=== PATIENT | female | born 1955 | race Asian ===

== ENCOUNTER 2023-12-12 01:44 | Emergency (ER) | payer MEDICAID, OTHER ==
[~2023-12-12] VITALS: Ht 157.5 cm; Wt 52.9 kg
[2023-12-12] MEDS: cloNIDine HCL 0.1 MG TAB PO ONE (02:26)
[2023-12-12 02:30] LABS: Basophils # (auto) 0 10 ^3/uL (0-0.2); Basophils % (auto) 0.5 % (0.0-2.0); Eosinophils # (auto) 0.1 10 ^3/uL (0-0.8); Eosinophils % (auto) 1.4 % (0.0-7.0); Hematocrit 36.8 % (36.0-46.0); Hemoglobin 12.6 g/dL (12.2-16.2); Lymphocytes # (auto) 1.6 10 ^3/uL (0.4-5.4); Lymphocytes % (auto) 30.5 % (10.0-50.0); Mean Corpuscular Hgb Conc. 34.2 g/dL (32.0-36.0); Mean Corpuscular Volume 96.4 fL (80.0-100.0); Monocytes # (auto) 0.3 10 ^3/uL (0-1.3); Monocytes % (auto) 6.4 % (0.0-12.0); Neutrophils # (auto) 3.3 10 ^3/uL (1.6-8.6); Neutrophils % (auto) 61.2 % (37.0-80.0); Nucleated Red Blood Cells % 0.1 %; Red Blood Cells 3.82 10^6/uL (4.0-5.20); White Blood Cell 5.3 10^3/uL (4.4-10.8)
[2023-12-12 02:48] LABS: Albumin 4.2 g/dL (3.2-4.8); Alkaline Phosphatase 81 U/L (46-116); Anion Gap 8 (5-15); Aspartate Aminotransferase 13 U/L (13-40); Blood Urea Nitrogen 17 mg/dL (9-23); Calcium 9.6 mg/dL (8.7-10.4); Carbon Dioxide 25 mmol/L (20-30); Chloride 109 mmol/L (98-107); Glucose 103 mg/dL (74-106); INR 0.96 (0.9-1.15); Partial Thromboplastin Time 27.1 SEC (24.5-34.5); Potassium 3.5 mmol/L (3.5-5.1); Prothrombin Time 10.2 sec (9.3-11.8); Sodium 142 mmol/L (136-145)
[2023-12-12 02:49] LABS: Bilirubin, Total 0.5 mg/dL (0.2-1.0); Total Protein 7.3 g/dL (5.7-8.2)
[2023-12-12 02:58] LABS: Alanine Aminotransferase 9 U/L (7-40)
[2023-12-12] MEDS: levETIRAcetam 1000 mg/100ml 100 ML IV ONE (03:05)
[2023-12-12 03:30] VITALS: BP 123/71; PULSE 82; RESP 15; TEMP 98.1; O2SAT 96
== END 2023-12-12 03:40 | disposition short-term general hospital (02) ==
LOC: ER 01:44
DX: I62.9 Nontraumatic intracranial hemorrhage, unspecified (principal); R47.81 Slurred speech; R51.9 Headache, unspecified; E11.9 Type 2 diabetes mellitus without complications; I10 Essential (primary) hypertension
CPT/HCPCS: 36415; 70450; 71045; 80053; 84484; 85025; 85610; 85730; 93005; 96365; 96375; 99285; J1953

== ENCOUNTER 2024-04-18 12:29 | Inpatient (IN) | payer MEDICAID ==
[~2024-04-18] VITALS: Ht 157.5 cm; Wt 55.9 kg
--- NOTE | 2024-04-18 12:46 | ED.PDOC ---
HPI (NEURO) HPI Comments 69 y.o female with a PMH of intracerebral hemorrhage, DM and HTN, presents to the ED via EMS for a chief complaint of intermittent headache, nausea, and generalized weakness that presented 2 weeks ago. Patient was at PCP office today for a follow up s/p intracerebral hemorrhage diagnose on 12/2023, staff stated patient expressed symptoms are back again and [address] follow up to rule out another hemorrhage. Patient denies any nausea, vomiting, recent head injuries, trauma, chest pain, fever, chills,. dizziness. Time Seen by MD: 12:24 Reviewed Notes: Nurses Notes, Founder Chairman And Chief Creative Officer Notes, Medications, Allergies Information Source: Patient, Emergency Med Personnel Mode of Arrival: EMS Severity: Moderate Timing: Weeks (2) Duration: Intermittent Headache Quality: Aching Onset: At rest Circumstances: Spontaneous History of: DM, Hypertension, Other (intracerebral hemorrhage ) Modifying factors: Nothing Associated Signs and Symptoms: Headache Past Medical History PAST MEDICAL HISTORY: DM, HTN Past Medical History (Other): intracerebral hemorrhage Surgical History: Denies all surgeries TOOL MECHANIC History: No Pertinent TOOL MECHANIC History Family History Family History: Reviewed,noncontributory to illness, No family hx of Cancer, No family hx of DM, No family hx of Heart evy, No family hx of HTN, No family hx ofKidney evy, No family hx of Liver evy, No family hx of Lung evy, No family hx of Stroke Social History Smoker: Non-Smoker Alcohol: Denies ETOH Use Drugs: Denies Drug Use Lives In: Home Constitutional: reports: weakness; denies: chills, diaphoresis, fatigue, fever, malaise, sweats, others EENTM: denies: blurred vision, double vision, ear bleeding, ear discharge, ear drainage, ear pain, ear ringing, eye pain, eye redness, hearing loss, mouth pain, mouth swelling, nasal discharge, nose bleeding, nose congestion, nose pain, photophobia, tearing, throat pain, throat swelling, voice changes, others Respiratory: denies: cough, hemoptysis, orthopnea, SOB at rest, shortness of breath, SOB with excertion, stridor, wheezing, others Cardiovascular: denies: chest pain, dizzy spells, diaphoresis, Dyspnea on exertion, edema, irregular heart beat, left arm pain, lightheadedness, palpitations, PND, syncope, others Gastrointestinal: denies: abdomen distended, abdominal pain, blood streaked bowels, constipated, diarrhea, dysphagia, difficulty swallowing, hematemesis, melena, nausea, poor appetite, poor fluid intake, rectal bleeding, rectal pain, vomiting, others Genitourinary: denies: abnormal vagina bleeding, burning, dyspareunia, dysuria, flank pain, frequency, hematuria, incontinence, pain, , vagina discharge, urgency, others Neurological: reports: headache; denies: dizziness, fainting, left sided numbness, left sided weakness, numbness, paresthesia, pre-existing deficit, right sided numbness, right sided weakness, seizure, speech problems, tingling, tremors, weakness, others Musculoskeletal: denies: back pain, gout, joint pain, joint swelling, muscle pain, muscle stiffness, neck pain, others Integumetry: denies: bruises, change in color, change in hair/nails, dryness, laceration, lesions, lumps, rash, wounds, others Allergic/Immunocompromised: denies: Difficulty Healing, Frequent Infections, Hives, Itching, others Hematologic/Lymphatic: denies: anemia, blood clots, easy bleeding, easy bruising, swollen glands, others Endocrine: denies: excessive hunger, excessive sweating, excessive thirst, excessive urination, flushing, intolerance to cold, intolerance to heat, unexplained weight gain, unexplained weight loss, others Psychiatric: denies: anxiety, bipolar disorder, depression, hopeless, panic disorder, schizophrenia, sleepless, suicidal, others All Other Systems: Reviewed and Negative Physical Exam General Appearance: Moderate Distress HEENT: Normal ENT Inspection, Pharynx Normal, TMs Normal Neck: Full Range of Motion, Non-Tender, Normal, Normal Inspection Respiratory: Chest Non-Tender, Lungs Clear, No Accessory Muscle Use, No R espiratory Distress, Normal Breath Sounds Cardiovascular: No Edema, No JVD, No Murmur, No Gallop, Normal Peripheral Pulses, Regular Rate/Rhythm Breast Exam: Deferred Gastrointestinal: No Organomegaly, Non Tender, No Pulsatile Mass, Normal Bowel Sounds, Soft Genitalia: Deferred Pelvic: Deferred Rectal: Deferred Extremities: No calf tenderness, Normal inspection Musculoskeletal : Apperance: Normal Neurologic: Alert Cerebellar Function: NOT DONE Reflexes: NOT DONE Skin: Normal Color Peripheral Pulses: 3+ Radial (R), 3+ Radial (L) Lymphatic: No Adenopathy Was a procedure done? Was a procedure done?: No Differential Diagnosis (SZ) Seizure: Psychogenic Seizure, Closed Head Injury, CVA/TIA Headache: Cluster, Migraine, CVA, Epidural Hemorrhage, Intracerebral Hemorrhage, Subarachnoid Hemorrhage, Subdural Hemorrhage, Mass Lesion, Meningitis, Trigeminal Neuralgia X-Ray, Labs, Meds, VS Vital Signs Date Time Temp Pulse Resp B/P (MAP) Pulse Ox O2 Delivery O2 Flow Rate FiO2 04/18/24 13:06 143/60 04/18/24 13:02 64 18 142/80 (100) 100 04/18/24 13:02 64 18 100 Room Air 04/18/24 12:58 98.9 72 16 160/89 (112) 100 Lab Test 04/18/24 12:42 Range/Units White Blood Count 4.7 4.4-10.8 10^3/uL Red Blood Count 3.62 L 4.0-5.20 10^6/uL Hemoglobin 11.8 L 12.2-16.2 g/dL Hematocrit 35.3 L 36.0-46.0 % Mean Corpuscular Volume 97.6 80.0-100.0 fL Mean Corpuscular Hemoglobin 32.6 H 28.0-32.0 pg Mean Corpuscular Hemoglobin Concent 33.4 32.0-36.0 g/dL Red Cell Distribution Width 13.3 11.8-14.3 % Platelet Count 218 140-450 10^3/uL Mean Platelet Volume 7.1 6.9-10.8 fL Neutrophils (%) (Auto) 68.3 37.0-80.0 % Lymphocytes (%) (Auto) 23.0 10.0-50.0 % Monocytes (%) (Auto) 7.3 0.0-12.0 % Eosinophils (%) (Auto) 1.0 0.0-7.0 % Basophils (%) (Auto) 0.4 0.0-2.0 % Neutrophils # (Auto) 3.2 1.6-8.6 10 ^3/uL Lymphocytes # (Auto) 1.1 0.4-5.4 10 ^3/uL Monocytes # (Auto) 0.3 0-1.3 10 ^3/uL Eosinophils # (Auto) 0 0-0.8 10 ^3/uL Basophils # (Auto) 0 0-0.2 10 ^3/uL Nucleated Red Blood Cells 0.0 % Sodium Level 144 136-145 mmol/L Potassium Level 3.8 3.5-5.1 mmol/L Chloride Level 111 H 98-107 mmol/L Carbon Dioxide Level 28 20-31 mmol/L Anion Gap 5 5-15 Blood Urea Nitrogen 20 9-23 mg/dL Creatinine 0.92 0.550-1.02 mg/dL Glomerular Filtration Rate Calc 67 >90 mL/min BUN/Creatinine Ratio 21.7 H 10.0-20.0 Serum Glucose 101 74-106 mg/dL Calcium Level 9.6 8.7-10.4 mg/dL Troponin I High Sensitivity 4 </=34 ng/L Patient alert. Complaining of headache generalized weakness. Vitals stable. Answering all questions. Blood pressure elevated. Was given clonidine. Reviewed her history. Was at [facility] for intracranial hemorrhage. Explained to the patient. Continue cardiac monitoring. CT of the head reviewed does not show any acute changes. Time of 1ST Reevaluation: 12:39 Reevaluation 1ST: Unchanged Patient Education/Counseling: Diagnosis, Treatment, Prognosis, Other (translation provided ) Family Education/Counseling: No Family Present Additional Information The following tests were ordered, and results were reviewed by me: LAB, PHA, CT head Reviewed Results- LAB, PHA, CT Additional information was gathered from interviewing the following independent historians Translation via SIMONA Vines, Paramedics I reviewed and agreed with the following test results read by other providers: CT head I discussed treatments and results with medical personnel and patient Departure 1 Departure Time of Disposition: 12:52 Impression: Primary Impression: Generalized weakness Disposition: ADMITTED INPATIENT Admit to: Med Surg Condition: Guarded Critical Care Note Critical Care Time?: No Stability Stability form required: No I personally scribed for MIKAEL JACKSON MD ([email or web address]) on 04/18/24 at 12:46. Electronically submitted by Julita Helms ([facility]). MIKAEL JACKSON MD Apr 18, 2024 12:46
[2024-04-18] MEDS: cloNIDine HCL 0.1 MG TAB PO ONE (13:02)
[2024-04-18 13:10] LABS: Basophils # (auto) 0 10 ^3/uL (0-0.2); Basophils % (auto) 0.4 % (0.0-2.0); Eosinophils # (auto) 0 10 ^3/uL (0-0.8); Hematocrit 35.3 % (36.0-46.0); Hemoglobin 11.8 g/dL (12.2-16.2); Lymphocytes # (auto) 1.1 10 ^3/uL (0.4-5.4); Mean Corpuscular Hemoglobin 32.6 pg (28.0-32.0); Mean Corpuscular Hgb Conc. 33.4 g/dL (32.0-36.0); Mean Corpuscular Volume 97.6 fL (80.0-100.0); Monocytes # (auto) 0.3 10 ^3/uL (0-1.3); Monocytes % (auto) 7.3 % (0.0-12.0); Neutrophils # (auto) 3.2 10 ^3/uL (1.6-8.6); Neutrophils % (auto) 68.3 % (37.0-80.0); Platelet Count (auto) 218 10^3/uL (140-450); Red Blood Cells 3.62 10^6/uL (4.0-5.20); Red Cell Distribution Width 13.3 % (11.8-14.3); White Blood Cell 4.7 10^3/uL (4.4-10.8)
--- NOTE | 2024-04-18 13:11 | DVH ---
CLINICAL HISTORY: headache TECHNIQUE: Helical imaging carried out from skull base to vertex without intravenous contrast. This e xam was performed according to our departmental dose optimization program. Up-to-date CT equipment an d radiation dose reduction techniques are utilized as appropriate. CTDIVol: [CTDIvol] mGy DLP: 987.52 mGy-cm WID: COMPARISON: CT HEAD WITHOUT CONTRAST on DOS: 12/12/23 FINDINGS: Mild patchy low attenuation in the cerebral white matter is consistent with nonspecific white matter disease. There is a chronic left basal ganglia infarct. The ventricles and subarachnoid spaces are normal in size and configuration. There is no midline geovanny ft or mass effect. The gibbs white matter interfaces are maintained. The basal cisterns are patent. Th ere is no evidence of acute intracranial hemorrhage or extra-axial fluid collection. The mastoid air cells and visualized paranasal sinuses are well-aerated. IMPRESSION: 1. No acute intracranial abnormality. 2. Mild chronic microvascular ischemic change. 3. Small chronic left basal ganglia infarct
[2024-04-18 13:18] LABS: Potassium 3.8 mmol/L (3.5-5.1); Sodium 144 mmol/L (136-145)
[2024-04-18 13:19] LABS: Anion Gap 5 (5-15); Carbon Dioxide 28 mmol/L (20-31)
[2024-04-18 13:20] LABS: Calcium 9.6 mg/dL (8.7-10.4)
[2024-04-18 13:24] LABS: Chloride 111 mmol/L (98-107); Glucose 101 mg/dL (74-106)
[2024-04-18 13:25] LABS: BUN/Creatinine Ratio 21.7 (10.0-20.0); Blood Urea Nitrogen 20 mg/dL (9-23)
[2024-04-18] MEDS ORDERED: hydrALAZINE HCL 20 MG/ML VL IV PRN (17:15)
[2024-04-18] MEDS ORDERED: DOCUSATE SOD 100 MG CAP PO PRN (17:45)
[2024-04-18] MEDS ORDERED: LORazepam 0.5 MG TAB PO PRN (17:45)
[2024-04-18] MEDS ORDERED: TEMAZEPAM 15 MG CAP PO PRN (17:45)
[2024-04-18] MEDS ORDERED: MORPHINE SULFATE INJ 2 MG/ml SYRG IV PRN (17:45)
[2024-04-18] MEDS ORDERED: ACETAMINOPHEN 325 MG TAB PO PRN (17:45)
[2024-04-18] MEDS ORDERED: HYDROcodone-ACET 5/325MG TAB PO PRN (17:45)
--- NOTE | 2024-04-18 17:57 | DVHHP2 ---
History of Present Illness Reason for Visit: General weakness History of Present Illness 69-year-old patient former history of diabetes and hypertension former history of stroke including hemorrhagic stroke comes to the ED with complaints of headache nausea vomiting dizziness for 2 weeks patient was evaluated in the ED this evaluation comes following the patient having a history of a hemorrhagic stroke earlier in the year stated to be around sometime in December patient as of now denies any acute signs of trauma any acute falls however patient came from a facility where there acute concern with the possibility of another hemorrhagic stroke versus stroke in general patient was recommended from the ED to be admitted for further evaluation management and neuro evaluation Cardiovascular: HTN Endocrine: Diabetes Review of Systems Constitutional: Yes: Weakness; No: Fever, Chills, Sweats, Malaise, Other Eyes: No: Pain, Vision change, Conjunctivae inflammation, Eyelid inflammation, Other, Redness ENT: No: Ear pain, Ear discharge, Nose pain, Nose discharge, Nose congestion, M outh pain, Mouth swelling, Throat pain, Throat swelling, Other Respiratory: No: Cough, Dry, Shortness of breath, SOB with excertion, Wheezing, Hemoptysis, Pleuritic Pain, Sputum, Wheezing, Other Cardiovascular: No: Chest Pain, Palpitations, Orthopnea, Paroxysmal Noc. Dyspnea, Edema, Lt Headedness, Other Gastrointestinal: No: Nausea, Vomiting, Abdominal Pain, Diarrhea, Constipation, Melena, Hematochezia, Other Genitourinary: No Dysuria, No Frequency, No Incontinence, No Hematuria, No Retention, No Other Musculoskeletal: No: other, neck pain, shoulder pain, arm pain, back pain, hand pain, leg pain, foot pain Skin: No: Rash, Lesions, Jaundice, Bruising, Other Neurological: Weakness, Numbness, Change in speech; No: Incoordination, Confusion, Seizures, Other Allergies: Coded Allergies: NO KNOWN ALLERGIES (Unverified , 12/12/23) Exam Vital Signs Vital Signs Date Time Temp Pulse Resp B/P (MAP) Pulse Ox O2 Delivery O2 Flow Rate FiO2 04/18/24 13:06 143/60 04/18/24 13:02 64 18 100 04/18/24 13:02 Room Air 04/18/24 12:58 98.9 General Appearance: Alert, Oriented X3, Cooperative, mild distress HEENT: Atraumatic, PERRLA Respiratory: Clear to auscultation, Normal air movement Cardiovascular: Regular rate, Normal S1 Abdominal: Normal bowel sounds, Soft Extremities: No clubbing, No cyanosis Skin: No rashes, No breakdown Neuro: Normal gait, Normal speech Psych/Mental Status: Mood NL Labs/Xrays Labs Test 04/18/24 12:42 Range/Units White Blood Count 4.7 4.4-10.8 10^3/uL Red Blood Count 3.62 L 4.0-5.20 10^6/uL Hemoglobin 11.8 L 12.2-16.2 g/dL Hematocrit 35.3 L 36.0-46.0 % Mean Corpuscular Volume 97.6 80.0-100.0 fL Mean Corpuscular Hemoglobin 32.6 H 28.0-32.0 pg Mean Corpuscular Hemoglobin Concent 33.4 32.0-36.0 g/dL Red Cell Distribution Width 13.3 11.8-14.3 % Platelet Count 218 140-450 10^3/uL Mean Platelet Volume 7.1 6.9-10.8 fL Neutrophils (%) (Auto) 68.3 37.0-80.0 % Lymphocytes (%) (Auto) 23.0 10.0-50.0 % Monocytes (%) (Auto) 7.3 0.0-12.0 % Eosinophils (%) (Auto) 1.0 0.0-7.0 % Basophils (%) (Auto) 0.4 0.0-2.0 % Neutrophils # (Auto) 3.2 1.6-8.6 10 ^3/uL Lymphocytes # (Auto) 1.1 0.4-5.4 10 ^3/uL Monocytes # (Auto) 0.3 0-1.3 10 ^3/uL Eosinophils # (Auto) 0 0-0.8 10 ^3/uL Basophils # (Auto) 0 0-0.2 10 ^3/uL Nucleated Red Blood Cells 0.0 % Sodium Level 144 136-145 mmol/L Potassium Level 3.8 3.5-5.1 mmol/L Chloride Level 111 H 98-107 mmol/L Carbon Dioxide Level 28 20-31 mmol/L Anion Gap 5 5-15 Blood Urea Nitrogen 20 9-23 mg/dL Creatinine 0.92 0.550-1.02 mg/dL Glomerular Filtration Rate Calc 67 >90 mL/min BUN/Creatinine Ratio 21.7 H 10.0-20.0 Serum Glucose 101 74-106 mg/dL Calcium Level 9.6 8.7-10.4 mg/dL Troponin I High Sensitivity 4 </=34 ng/L Assessment/Plan Assessment/Plan Admit to [facility] Generalized weakness Change in mentation Sent from a nursing facility for evaluation and rule out of acute stroke CT head shows chronic changes including chronic infarcts No acute changes noted Facility was requesting a neuro evaluation Rule out any form of secondary infection including urinary tract infection No acute urine has been collected at this time UA ordered Current labs do not show signs of an acute infection We will proceed with IV hydration Neuro consultation Plan discussed with: Patient My Orders Orders - ALAN CAMPUZANO MD Procedure Category Date Status Time Hydralazine Injection PHA 04/18/24 In Process (Apresoline Inject 17:15 Admit ADMIT 04/18/24 Transmitted 17:43 Code Status CODE 04/18/24 Transmitted 17:43 Vital Signs [facility] 04/18/24 In Process 17:43 Review Orders With [facility] 04/18/24 In Process Adm.Md 17:43 Notify Md Of Changes [facility] 04/18/24 In Process From Base 17:43 Advance Directive [facility] 04/18/24 In Process 17:43 Patient Condition ORDERS 04/18/24 Transmitted 17:43 Allergies [facility] 04/18/24 In Process 17:43 Notify Md Of Changes [facility] 04/18/24 In Process From Base 17:43 Oxygen By Nasal RT 04/18/24 Transmitted Cannula 17:43 Problem List: (1) Generalized weakness (2) Headache Date of Service: Apr 18, 2024 Billing Provider: ALAN CAMPUZANO MD Common Visit Codes: [id number] INP/OBS CARE (HIGH) ALAN CAMPUZANO MD Apr 18, 2024 17:57
[2024-04-18 20:11] LABS: Urine Bacteria None Seen /hpf (None Seen)
[2024-04-18 20:35] VITALS: BP 145/73; PULSE 66; RESP 18; TEMP 97.9; O2SAT 98
[2024-04-18 20:40] LABS: Urine Blood TRACE /uL (Negative); Urine Clarity Clear (Clear); Urine Color Light-Yellow (Yellow); Urine Mucus FEW (None Seen); Urine Protein, UAD TRACE (Negative); Urine Specific Gravity 1.019 (1.001-1.035); Urine Urobilinogen Normal (Negative); Urine WBC 5 /hpf (0 - 5); Urine pH 5.5 (5.0-9.0)
[2024-04-18] MEDS: SODIUM CHLORIDE 0.9% 1,000 ML IV SCH (21:14)
[2024-04-19 01:00] VITALS: BP 135/82; PULSE 84; RESP 18; TEMP 98.2; O2SAT 97
[2024-04-19 05:00] VITALS: BP 148/77; PULSE 73; RESP 16; TEMP 98.1; O2SAT 98
[2024-04-19 07:13] LABS: Anion Gap 9 (5-15); Calcium 9.5 mg/dL (8.7-10.4); Carbon Dioxide 26 mmol/L (20-31); Sodium 145 mmol/L (136-145)
[2024-04-19 07:15] LABS: Chloride 110 mmol/L (98-107); Potassium 3.2 mmol/L (3.5-5.1)
[2024-04-19 07:18] LABS: Basophils # (auto) 0 10 ^3/uL (0-0.2); Basophils % (auto) 0.6 % (0.0-2.0); Eosinophils # (auto) 0.1 10 ^3/uL (0-0.8); Eosinophils % (auto) 1.5 % (0.0-7.0); Hematocrit 33.8 % (36.0-46.0); Hemoglobin 11.5 g/dL (12.2-16.2); Lymphocytes # (auto) 1.1 10 ^3/uL (0.4-5.4); Lymphocytes % (auto) 30.7 % (10.0-50.0); Mean Corpuscular Hemoglobin 32.8 pg (28.0-32.0); Mean Corpuscular Hgb Conc. 33.9 g/dL (32.0-36.0); Mean Corpuscular Volume 96.8 fL (80.0-100.0); Monocytes # (auto) 0.3 10 ^3/uL (0-1.3); Monocytes % (auto) 7.8 % (0.0-12.0); Neutrophils # (auto) 2.1 10 ^3/uL (1.6-8.6); Neutrophils % (auto) 59.4 % (37.0-80.0); Nucleated Red Blood Cells % 0.2 %; Platelet Count (auto) 195 10^3/uL (140-450); Red Blood Cells 3.49 10^6/uL (4.0-5.20); Red Cell Distribution Width 13.4 % (11.8-14.3); White Blood Cell 3.6 10^3/uL (4.4-10.8)
[2024-04-19 07:19] LABS: BUN/Creatinine Ratio 20.9 (10.0-20.0); Blood Urea Nitrogen 14 mg/dL (9-23); Glucose 83 mg/dL (74-106)
[2024-04-19 09:00] VITALS: BP 142/75; PULSE 89; RESP 18; TEMP 98.2; O2SAT 97
--- NOTE | 2024-04-19 12:18 | DVHPN2 ---
Reviewed: Care Plan, H&P, Labs, Medications, Previous Orders, Radiology Changes from previous H/P or p: No Changes Eyes: No Pain, No Vision change, No Conjunctivae inflammation, No Eyelid inflammation, No Other, No Redness ENT: No Ear pain, No Ear discharge, No Nose pain, No Nose discharge, No Nose congestion, No Mouth pain, No Mouth swelling, No Throat pain, No Throat swelling, No Other Cardiovascular: No Chest Pain, No Palpitations, No Orthopnea, No Paroxysmal Noc. Dyspnea, No Edema, No Lt Headedness, No Other Respiratory: No Cough, No Dry, No Shortness of breath, No SOB with excertion, No Wheezing, No Hemoptysis, No Pleuritic Pain, No Sputum, No Other Gastrointestinal: No Nausea, No Vomiting, No Abdominal Pain, No Diarrhea, No Constipation, No Melena, No Hematochezia, No Other Genitourinary: No Dysuria, No Frequency, No Incontinence, No Hematuria, No Retention, No Other Musculoskeletal: No other, No neck pain, No shoulder pain, No arm pain, No back pain, No hand pain, No leg pain, No foot pain Skin: No Rash, No Lesions, No Jaundice, No Bruising, No Other Objective Vitals Vital Signs Date Time Temp Pulse Resp B/P (MAP) Pulse Ox O2 Delivery O2 Flow Rate FiO2 04/19/24 09:00 98.2 89 18 142/75 (97) 97 98.2 04/19/24 00:08 Room Air* 0 21 Intake/Output Intake and Output 04/19/24 07:00 Intake Total 240 ml Balance 240 ml Intake Oral 240 ml # Voids 1 Medications Current Medications Medications Dose Ordered Sig/Deloris Route Start Time Stop Time Status Last Admin Dose Admin Hydralazine HCl 10 mg Q6HPRN PRN IV 04/18/24 17:15 Sodium Chloride 1,000 ml @ 60 mls/hr [id number] IV 04/18/24 17:45 04/18/24 21:14 60 MLS/HR Lorazepam 0.5 mg Q6HP PRN PO 04/18/24 17:45 Al Hydrox/Mg Hydrox/Simethicone 30 ml Q6HP PRN PO 04/18/24 17:45 Docusate Sodium 100 mg BIDPRN PRN PO 04/18/24 17:45 Acetaminophen 650 mg Q6HP PRN PO 04/18/24 17:45 Temazepam 15 mg QHSP PRN PO 04/18/24 17:45 Acetaminophen/ Hydrocodone Bitart 1 tab Q4HP PRN PO 04/18/24 17:45 Ondansetron HCl 4 mg Q4HP PRN IV 04/18/24 17:45 Morphine Sulfate 2 mg Q4HPRN PRN IV 04/18/24 17:45 Ceftriaxone Sodium 50 ml @ 100 mls/hr DAILY@ IV 04/20/24 09:00 UNV Laboratory Results Laboratory Tests 04/19/24 06:09 Chemistry Test 04/18/24 12:42 04/19/24 06:09 Calcium Level 9.6 mg/dL (8.7-10.4) 9.5 mg/dL (8.7-10.4) Urinalysis Test 04/18/24 20:01 Urine Color Light-yellow (Yellow) Urine Clarity Clear (Clear) Urine pH 5.5 (5.0-9.0) Urine Specific [place] 1.019 (1.001-1.035) Urine Protein Trace (Negative) H Urine Ketones 1+ (Negative) H Urine Blood Trace /uL (Negative) H Urine Nitrite Negative (Negative) Urine Bilirubin Negative (Negative) Urine Urobilinogen Normal mg/dL (Negative) Urine Leukocyte Esterase Trace /uL (Negative) Urine RBC 1 /hpf (0 - 4) Urine WBC 5 /hpf (0 - 5) Urine Squamous Epithelial Cells Few /hpf (<5) Urine Bacteria None seen /hpf (None Seen) Urine Mucus Few (None Seen) Urine Glucose Normal mg/dL (Normal) Labs and/or images reviewed: Labs reviewed by me, Image(s) reviewed by me Assessment/Plan Assessment/Plan Nausea vomiting: GI consult for Dr. Deanna Swartz, CT abdomen pelvis without contrast negative Possible gastroenteritis: Rocephin: Zofran pantoprazole Acute urinary tract infection urine cultures Rocephin Hypertension Diabetes History of hemorrhagic stroke in the past Plan discussed with: Patient My Orders Orders - ROBBY VIGIL MD Procedure Category Date Status Time Ceftriaxone 1gm/50ml PHA 04/20/24 Logged D5w (Rocephin) 09:00 Ceftriaxone Ivpb PHA 04/19/24 Transmitted Rocephin 12:15 Urine Bacterial ENOCH 04/19/24 Logged Culture 12:14 * Gi D[facility] Product Safety Administrator CONS 04/19/24 Transmitted 12:15 Date of Service: Apr 19, 2024 Billing Provider: ROBBY VIGIL MD Common Visit Codes: [id number] INP/OBS CARE(HIGH) ROBBY VIGIL MD Apr 19, 2024 12:18
[2024-04-19 13:00] VITALS: BP 147/80; PULSE 72; RESP 18; TEMP 98.4; O2SAT 98
[2024-04-19 14:23] LABS: Alanine Aminotransferase 13 U/L (7-40); Albumin 3.9 g/dL (3.2-4.8); Alkaline Phosphatase 80 U/L (46-116); Anion Gap 8 (5-15); Aspartate Aminotransferase 14 U/L (13-40); Blood Urea Nitrogen 16 mg/dL (9-23); Calcium 9.6 mg/dL (8.7-10.4); Carbon Dioxide 27 mmol/L (20-31); Sodium 143 mmol/L (136-145)
[2024-04-19 14:25] LABS: Total Protein 6.2 g/dL (5.7-8.2)
[2024-04-19 14:42] LABS: Chloride 108 mmol/L (98-107); Glucose 168 mg/dL (74-106); Potassium 3.4 mmol/L (3.5-5.1)
[2024-04-19 15:06] LABS: Bilirubin, Total 0.7 mg/dL (0.2-1.0)
[2024-04-19] MEDS: POTASSIUM EFFERVESENT TAB 25 MEQ PO ONE (15:20)
--- NOTE | 2024-04-19 15:57 | DVHINCON2 ---
GI Consult Consult Note GI consult note Date of Consultation: 04/19/2024 Chief Complaint: Nausea Referring Physician: Dr. 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 Patient has nausea no vomiting. No hematemesis Patient feels like a upset stomach, many years and has decreased appetite Patient has multiple EGDs in the past, last EGD one year ago, diagnosed with gastritis Patient has 15 lb weight loss in one year, due to decreased appetite Past Medical History: DM, HTN intracerebral hemorrhage Past Surgical History: Denies Social History: NO smoking, drinking ETOH and use of illegal drugs. Family History: Noncontributory Review of Systems: Constitutional: no fever, chill, weight loss HEENT: no eye pain, no hearing loss, no oral lesion, no scleral icterus Heart: no chest pain, no chest pressure Lung: no cough, no dyspnea with exertion Abdomen: see HPI Physical exam: General: NAD, AAOX3 Chest: lung crain clear to auscultation Heart: RRR, no murmur Abdomen: non-distended, no tenderness to palpation, +BS Labs: Labs Test 04/19/24 13:38 04/19/24 06:09 04/18/24 20:01 04/18/24 12:42 Range/Units Sodium Level 143 136-145 mmol/L Potassium Level 3.4 L 3.5-5.1 mmol/L Chloride Level 108 H 98-107 mmol/L Carbon Dioxide Level 27 20-31 mmol/L Anion Gap 8 5-15 Blood Urea Nitrogen 16 9-23 mg/dL Creatinine 0.89 # 0.550-1.02 mg/dL Glomerular Filtration Rate Calc 70 >90 mL/min BUN/Creatinine Ratio 18.0 10.0-20.0 Serum Glucose 168 H 74-106 mg/dL Calcium Level 9.6 8.7-10.4 mg/dL Total Bilirubin 0.7 0.2-1.0 mg/dL Aspartate Amino Transferase (AST) 14 13-40 U/L Alanine Aminotransferase (ALT) 13 7-40 U/L Alkaline Phosphatase 80 46-116 U/L Total Protein 6.2 5.7-8.2 g/dL Albumin 3.9 3.2-4.8 g/dL White Blood Count 3.6 L 4.4-10.8 10^3/uL Red Blood Count 3.49 L 4.0-5.20 10^6/uL Hemoglobin 11.5 L 12.2-16.2 g/dL Hematocrit 33.8 L 36.0-46.0 % Mean Corpuscular Volume 96.8 80.0-100.0 fL Mean Corpuscular Hemoglobin 32.8 H 28.0-32.0 pg Mean Corpuscular Hemoglobin Concent 33.9 32.0-36.0 g/dL Red Cell Distribution Width 13.4 11.8-14.3 % Platelet Count 195 140-450 10^3/uL Mean Platelet Volume 7.0 6.9-10.8 fL Neutrophils (%) (Auto) 59.4 37.0-80.0 % Lymphocytes (%) (Auto) 30.7 10.0-50.0 % Monocytes (%) (Auto) 7.8 0.0-12.0 % Eosinophils (%) (Auto) 1.5 0.0-7.0 % Basophils (%) (Auto) 0.6 0.0-2.0 % Neutrophils # (Auto) 2.1 1.6-8.6 10 ^3/uL Lymphocytes # (Auto) 1.1 0.4-5.4 10 ^3/uL Monocytes # (Auto) 0.3 0-1.3 10 ^3/uL Eosinophils # (Auto) 0.1 0-0.8 10 ^3/uL Basophils # (Auto) 0 0-0.2 10 ^3/uL Nucleated Red Blood Cells 0.2 % Urine Color Light-yellow Yellow Urine Clarity Clear Clear Urine pH 5.5 5.0-9.0 Urine Specific [place] 1.019 1.001-1.035 Urine Protein Trace H Negative Urine Ketones 1+ H Negative Urine Blood Trace H Negative /uL Urine Nitrite Negative Negative Urine Bilirubin Negative Negative Urine Urobilinogen Normal Negative mg/dL Urine Leukocyte Esterase Trace Negative /uL Urine RBC 1 0 - 4 /hpf Urine WBC 5 0 - 5 /hpf Urine Squamous Epithelial Cells Few <5 /hpf Urine Bacteria None seen None Seen /hpf Urine Mucus Few None Seen Urine Glucose Normal Normal mg/dL Troponin I High Sensitivity 4 </=34 ng/L Imaging: Assessment: Intractable nausea Gastritis Plan: Discussed with Dr. Maxime Protonix and Zofran Monitor labs Neurology evaluation pending Ultrasound of abdomen We will continue to monitor this patient Thank you for this consult Date of Service: Apr 19, 2024 Billing Provider: TOMAS VIGIL Common Visit Codes: CONSULT ONLY Consultation Codes: [id number] CONSULT <45MIN TOMAS VIGIL Apr 19, 2024 15:57
[2024-04-19] MEDS: cefTRIAXone 1GM/50ML D5W 50 ML IV ONE (16:00)
[2024-04-19 17:00] VITALS: BP 142/85; PULSE 78; RESP 18; TEMP 98.9; O2SAT 98
[2024-04-19 21:00] VITALS: BP 127/81; PULSE 83; RESP 18; TEMP 98.3; O2SAT 98
--- NOTE | 2024-04-19 21:20 | DVH ---
INDICATION: abd discomfort, persistant N TECHNIQUE: Multiple real-time sonographic images of the abdomen were obtained. COMPARISON: None FINDINGS: Hepatic parenchyma appears heterogeneous.. The liver measures 10.29 cm. No intrahepatic bi liary ductal dilatation is noted. The gallbladder wall measures 0. 1 9 cm and is unremarkable. No gallstones or sludge is seen. The common duct measures 0.51 cm and is unremarkable. No pericholecystic fluid is noted. Negative ultras ound Ruiz's sign was elicited. The right kidney measures 8.58 cm. No hydronephrosis. Left kidney measures 13.02. There appear to be multiple cysts in the left kidney largest measures 6.2 x 6.1 x 6.3 cm. The pancreas is normal The visualized portions of the IVC and aorta are grossly unremarkable. The abdominal aorta measures 2 .4 cm. Spleen: 8.1 cm IMPRESSION: 1. Liver measures 10.3 cm in length and the parenchyma appears heterogeneous. 2. Gallbladder appears normal with a negative ultrasound Ruiz's sign. 3. Right kidney measures 8.58 cm long. Left kidney measures 13.02 cm long and there are multiple cyst s in the left kidney.
[2024-04-20 00:45] VITALS: BP 145/78; PULSE 79; RESP 19; TEMP 97.6; O2SAT 94
[2024-04-20 05:00] VITALS: BP 136/81; PULSE 80; RESP 18; TEMP 98.3; O2SAT 96
[2024-04-20] MEDS: PANTOPRAZOLE 40 MG TAB PO SCH (05:44)
[2024-04-20 08:15] VITALS: PULSE 84; RESP 16; O2SAT 97
[2024-04-20 09:00] VITALS: BP 146/90; PULSE 84; RESP 16; TEMP 98.3; O2SAT 97
[2024-04-20] MEDS: cefTRIAXone 1GM/50ML D5W 50 ML IV SCH (09:17)
[2024-04-20] MEDS: MAALOX PLUS or MAALOX 30 ML PO PRN (09:17)
[2024-04-20] MEDS: ONDANSETRON HCL 4 MG/2 ML VIAL IV PRN (09:18)
[2024-04-20] MEDS ORDERED: CIPR-173 PO (12:21)
[2024-04-20] MEDS ORDERED: PANT40T PO (12:21)
[2024-04-20] MEDS ORDERED: ZOFR4T PO (12:21)
--- NOTE | 2024-04-20 12:25 | DVHPN2 ---
Reviewed: Care Plan, H&P, Labs, Medications, Previous Orders, Radiology Changes from previous H/P or p: No Changes Eyes: No Pain, No Vision change, No Conjunctivae inflammation, No Eyelid inflammation, No Other, No Redness ENT: No Ear pain, No Ear discharge, No Nose pain, No Nose discharge, No Nose congestion, No Mouth pain, No Mouth swelling, No Throat pain, No Throat swelling, No Other Cardiovascular: No Chest Pain, No Palpitations, No Orthopnea, No Paroxysmal Noc. Dyspnea, No Edema, No Lt Headedness, No Other Respiratory: No Cough, No Dry, No Shortness of breath, No SOB with excertion, No Wheezing, No Hemoptysis, No Pleuritic Pain, No Sputum, No Other Gastrointestinal: No Nausea, No Vomiting, No Abdominal Pain, No Diarrhea, No Constipation, No Melena, No Hematochezia, No Other Genitourinary: No Dysuria, No Frequency, No Incontinence, No Hematuria, No Retention, No Other Musculoskeletal: No other, No neck pain, No shoulder pain, No arm pain, No back pain, No hand pain, No leg pain, No foot pain Skin: No Rash, No Lesions, No Jaundice, No Bruising, No Other Objective Vitals Vital Signs Date Time Temp Pulse Resp B/P (MAP) Pulse Ox O2 Delivery O2 Flow Rate FiO2 04/20/24 09:00 98.3 84 16 146/90 (108) 97 98.3 04/20/24 08:15 Room Air* 0 21 Intake/Output Intake and Output 04/20/24 07:00 Intake Total 970 ml Balance 970 ml Intake Oral 920 ml IV Total 50 ml # Voids 6 Medications Current Medications Medications Dose Ordered Sig/Deloris Route Start Time Stop Time Status Last Admin Dose Admin Hydralazine HCl 10 mg Q6HPRN PRN IV 04/18/24 17:15 Sodium Chloride 1,000 ml @ 60 mls/hr [id number] IV 04/18/24 17:45 04/20/24 05:44 60 MLS/HR Lorazepam 0.5 mg Q6HP PRN PO 04/18/24 17:45 Al Hydrox/Mg Hydrox/Simethicone 30 ml Q6HP PRN PO 04/18/24 17:45 04/20/24 09:17 30 ML Docusate Sodium 100 mg BIDPRN PRN PO 04/18/24 17:45 Acetaminophen 650 mg Q6HP PRN PO 04/18/24 17:45 Temazepam 15 mg QHSP PRN PO 04/18/24 17:45 Acetaminophen/ Hydrocodone Bitart 1 tab Q4HP PRN PO 04/18/24 17:45 Ondansetron HCl 4 mg Q4HP PRN IV 04/18/24 17:45 04/20/24 09:18 4 MG Morphine Sulfate 2 mg Q4HPRN PRN IV 04/18/24 17:45 Ceftriaxone Sodium 50 ml @ 100 mls/hr DAILY@09 IV 04/20/24 09:00 04/20/24 09:17 100 MLS/HR Pantoprazole Sodium 40 mg DAILY@0600 PO 04/20/24 06:00 04/20/24 05:44 40 MG Laboratory Results Laboratory Tests 04/19/24 06:09 04/19/24 13:38 Chemistry Test 04/19/24 13:38 Albumin 3.9 g/dL (3.2-4.8) Calcium Level 9.6 mg/dL (8.7-10.4) Total Protein 6.2 g/dL (5.7-8.2) LFT Test 04/19/24 13:38 Alanine Aminotransferase (ALT) 13 U/L (7-40) Alkaline Phosphatase 80 U/L (46-116) Aspartate Amino Transferase (AST) 14 U/L (13-40) Total Bilirubin 0.7 mg/dL (0.2-1.0) Urinalysis Test 04/18/24 20:01 Urine Color Light-yellow (Yellow) Urine Clarity Clear (Clear) Urine pH 5.5 (5.0-9.0) Urine Specific [place] 1.019 (1.001-1.035) Urine Protein Trace (Negative) H Urine Ketones 1+ (Negative) H Urine Blood Trace /uL (Negative) H Urine Nitrite Negative (Negative) Urine Bilirubin Negative (Negative) Urine Urobilinogen Normal mg/dL (Negative) Urine Leukocyte Esterase Trace /uL (Negative) Urine RBC 1 /hpf (0 - 4) Urine WBC 5 /hpf (0 - 5) Urine Squamous Epithelial Cells Few /hpf (<5) Urine Bacteria None seen /hpf (None Seen) Urine Mucus Few (None Seen) Urine Glucose Normal mg/dL (Normal) Labs and/or images reviewed: Labs reviewed by me, Image(s) reviewed by me Assessment/Plan Assessment/Plan Nausea vomiting: GI consult for Dr. Deanna Swartz appreciated, CT abdomen pelvis without contrast negative Possible gastroenteritis: Rocephin: Zofran pantoprazole Acute urinary tract infection Rocephin Hypertension Diabetes History of hemorrhagic stroke in the past Patient feels better, no nausea vomiting or abdominal pain Plan discussed with: Patient My Orders Orders - ROBBY VIGIL MD Procedure Category Date Status Time Ceftriaxone 1gm/50ml PHA 04/20/24 In Process D5w (Rocephin) 09:00 Urine Bacterial ENOCH 04/19/24 In Process Culture 12:14 * [facility] [employer] Consultant CONS 04/19/24 Transmitted 12:15 Date of Service: Apr 20, 2024 Billing Provider: ROBBY VIGIL MD Common Visit Codes: [id number] INP/OBS CARE(HIGH) ROBBY VIGIL MD Apr 20, 2024 12:25
--- NOTE | 2024-04-20 12:31 | DVHDS2 ---
Discharge Summary Date of Admission Apr 18, 2024 at 17:45 Date of Discharge: Apr 20, 2024 Admitting Diagnosis Nausea mild abdominal pain and vomiting Wounds: None Labs/Diagnostic Data: Laboratory Results Test 04/19/24 13:38 04/19/24 06:09 04/18/24 20:01 04/18/24 12:42 Sodium Level 143 mmol/L (136-145) Potassium Level 3.4 mmol/L (3.5-5.1) Chloride Level 108 mmol/L (98-107) Carbon Dioxide Level 27 mmol/L (20-31) Anion Gap 8 (5-15) Blood Urea Nitrogen 16 mg/dL (9-23) Creatinine 0.89 mg/dL (0.550-1.02) Glomerular Filtration Rate Calc 70 mL/min (>90) BUN/Creatinine Ratio 18.0 (10.0-20.0) Serum Glucose 168 mg/dL (74-106) Calcium Level 9.6 mg/dL (8.7-10.4) Total Bilirubin 0.7 mg/dL (0.2-1.0) Aspartate Amino Transferase (AST) 14 U/L (13-40) Alanine Aminotransferase (ALT) 13 U/L (7-40) Alkaline Phosphatase 80 U/L (46-116) Total Protein 6.2 g/dL (5.7-8.2) Albumin 3.9 g/dL (3.2-4.8) White Blood Count 3.6 10^3/uL (4.4-10.8) Red Blood Count 3.49 10^6/uL (4.0-5.20) Hemoglobin 11.5 g/dL (12.2-16.2) Hematocrit 33.8 % (36.0-46.0) Mean Corpuscular Volume 96.8 fL (80.0-100.0) Mean Corpuscular Hemoglobin 32.8 pg (28.0-32.0) Mean Corpuscular Hemoglobin Concent 33.9 g/dL (32.0-36.0) Red Cell Distribution Width 13.4 % (11.8-14.3) Platelet Count 195 10^3/uL (140-450) Mean Platelet Volume 7.0 fL (6.9-10.8) Neutrophils (%) (Auto) 59.4 % (37.0-80.0) Lymphocytes (%) (Auto) 30.7 % (10.0-50.0) Monocytes (%) (Auto) 7.8 % (0.0-12.0) Eosinophils (%) (Auto) 1.5 % (0.0-7.0) Basophils (%) (Auto) 0.6 % (0.0-2.0) Neutrophils # (Auto) 2.1 10 ^3/uL (1.6-8.6) Lymphocytes # (Auto) 1.1 10 ^3/uL (0.4-5.4) Monocytes # (Auto) 0.3 10 ^3/uL (0-1.3) Eosinophils # (Auto) 0.1 10 ^3/uL (0-0.8) Basophils # (Auto) 0 10 ^3/uL (0-0.2) Nucleated Red Blood Cells 0.2 % Urine Color Light-yellow (Yellow) Urine Clarity Clear (Clear) Urine pH 5.5 (5.0-9.0) Urine Specific [place] 1.019 (1.001-1.035) Urine Protein Trace (Negative) Urine Ketones 1+ (Negative) Urine Blood Trace /uL (Negative) Urine Nitrite Negative (Negative) Urine Bilirubin Negative (Negative) Urine Urobilinogen Normal mg/dL (Negative) Urine Leukocyte Esterase Trace /uL (Negative) Urine RBC 1 /hpf (0 - 4) Urine WBC 5 /hpf (0 - 5) Urine Squamous Epithelial Cells Few /hpf (<5) Urine Bacteria None seen /hpf (None Seen) Urine Mucus Few (None Seen) Urine Glucose Normal mg/dL (Normal) Troponin I High Sensitivity 4 ng/L (</=34) Other Laboratory Tests 04/19/24 13:38 04/19/24 06:09 Brief Hx & Hospital Course: 69-year-old female history of hypertension diabetes history of hemorrhagic stroke in the past came in complaining of nausea vomiting and abdominal pain found to have mild gastroenteritis treated with the Zosyn Rocephin Zofran pantoprazole CT abdomen pelvis without contrast result negative for any acute changes patient feels better without any abdominal pain nausea or vomiting today tolerating regular diet discharged home on pantoprazole Cipro and Zofran. She will follow up with the primary Dr. Consults/Reason for consult GI Dr. Deanna Swartz Operations or Procedures CT abdomen pelvis without contrast Condition at Discharge: Fair Final Diagnosis/Problems List Nausea vomiting: GI consult for Dr. Deanna Swartz appreciated, CT abdomen pelvis without contrast negative Possible gastroenteritis: Rocephin: Zofran pantoprazole Acute urinary tract infection Rocephin Hypertension Diabetes History of hemorrhagic stroke in the past Discharge Disposition: Home Discharge Instruct/Medications Diet: Regular Activity: No Restrictions, As Tolerated Follow Up/Referral: Follow up with your primary Dr Medications: Zofran Pantoprazole Cipro Transmitted to the pharmacy 35 (Time Taken for discharge summary 35 minutes) Discharge Statement: "Patient was advised to return to the ER or call 911 if any headaches, dizziness, shortness of breath, chest pain, abdominal pain, bleeding, fevers, or worsening of medical condition. Patient was counseled about treatment plan, medications, possible side effects, patientverbalized understanding. All questions were answered to the best of my ability. This discharge took greater then 30 minutes in planning, reviewing documentation, counseling the patient, and discussing with other team members." ASSESSMENT ASSESSMENT Hospital Course Uneventful Assessment Nausea vomiting: GI consult for Dr. Deanna Swartz appreciated, CT abdomen pelvis without contrast negative Possible gastroenteritis: Rocephin: Zofran pantoprazole Acute urinary tract infection Rocephin Hypertension Diabetes History of hemorrhagic stroke in the past Date of Service: Apr 20, 2024 Billing Provider: ROBBY VIGIL MD Common Visit Codes: [id number]/[id number] DISCH DAY >30min ROBBY VIGIL MD Apr 20, 2024 12:31
[2024-04-20] MEDS ORDERED: METO25TA5 PO (12:39)
[2024-04-20] MEDS ORDERED: LOSA100T14 PO (12:39)
[2024-04-20] MEDS ORDERED: AMLO1TAB23 PO (12:39)
[2024-04-20 13:00] VITALS: BP_SYST 142; BP_SYST 150; BP_DIAS 64; BP_DIAS 86; PULSE 68; PULSE 75; RESP 18; TEMP 97.6; TEMP 98.2; TEMP 98.3; O2SAT 96; O2SAT 99
[2024-04-20 13:17] VITALS: BP 150/86; PULSE 75; RESP 18; TEMP 98.3; O2SAT 96
--- NOTE | 2024-04-20 21:43 | DVHPN2 ---
Progress Note - Dictate Date Seen: Apr 20, 2024 (Late entryPatient seen at 9:00 a.m.) Medical Necessity Reason Pt with a Central, PICC or Fol: No Subjective Patient seen at bedside She is resting comfortably She has no further nausea vomiting Abdominal pain is improving There is no GI bleeding or diarrhea vital signs Vital Sign Date Time Temp Pulse Resp B/P (MAP) Pulse Ox O2 Delivery O2 Flow Rate FiO2 04/20/24 13:17 98.3 75 18 96 04/20/24 13:00 150/86 (107) 04/20/24 08:15 Room Air* 0 21 Total Intake and Output 04/19/24 04/19/24 04/20/24 15:00 23:00 07:00 Intake Total 490 ml 480 ml Balance 490 ml 480 ml objective General: NAD, AAOX3 Chest: lung crain clear to auscultation Heart: RRR, no murmur Abdomen: non-distended, no tenderness to palpation, +BS Extremities without clubbing cyanosis or edema Neuro she is alert oriented x3 with no focal deficit laboratory and microbiology Laboratory Tests 04/19/24 13:38 04/19/24 06:09 Test 04/19/24 13:38 Range/Units Serum Glucose 168 H 74-106 mg/dL Gallbladder ultrasound was negative Problems(with codes): (1) Gastroenteritis (2) Headache (3) Generalized weakness Prognosis Plan Advance diet as tolerated Discharge planning in progress Outpatient follow up with GI Services if she has any ongoing symptoms and to discuss elective panendoscopy Once again thank you for allowing me to participate Plan discussed with: Patient, Other (Regina Felton) LAILA SOLANO MD Apr 20, 2024 21:43
== END 2024-04-20 14:49 | disposition home or self-care (01) | DRG 463 ==
LOC: EDUNIT# 12:29 → ER 12:29 → EDBD 12:29 → OVERFLOW 17:45 → WEST WING 23:03
PROVIDERS: ADMIT Hospitalist; ATTEND Hospitalist
DX: N39.0 Urinary tract infection, site not specified (principal); A08.4 Viral intestinal infection, unspecified; E11.9 Type 2 diabetes mellitus without complications; K29.70 Gastritis, unspecified, without bleeding; I10 Essential (primary) hypertension; Z79.899 Other long term (current) drug therapy; Z88.8 Allergy status to other drugs, medicaments and biological substances; Z86.73 Personal history of transient ischemic attack (TIA), and cerebral infarction without residual deficits
CPT/HCPCS: 36415; 70450; 76700; 80048; 80053; 81001; 84484; 85025; 87086; G0378; J2405